=== PATIENT | female | born 1975 | race Caucasian/White ===

== ENCOUNTER 2016-12-19 08:29 | Emergency (ER) | payer BC, OTHER ==
[~2016-12-19] VITALS: Ht 157.5 cm; Wt 126.0 kg
[~2016-12-19 08:29] MED LIST: PRED20TA PO
[2016-12-19 08:37] VITALS: TEMP 36.6; Ht 157.5 cm; Wt 126.0 kg
[2016-12-19] MEDS ORDERED: ONDANSETRON INJ 2 MG/ML 2 ML VIAL IV STA (08:44)
[2016-12-19] MEDS ORDERED: SODIUM CHLORIDE 0.9% 1000ML 1,000 ML IV STA (08:44)
[2016-12-19] MEDS ORDERED: MoRPHine SULFATE 4 MG/ML 1 ML CARP\\VIAL IV STA (08:44)
--- NOTE | 2016-12-19 08:54 | EMERGENCY ROOM VISIT NOTE ---
History First contact with patient: 08:34 Chief Complaint: ABDOMINAL PAIN Stated Complaint: GALLBLADDER PAIN-RT SIDE GOING INTO BACK Nursing Triage Summary: pt here with intermittent abd pains since sunday. pt suspects it is her gallbladder. pt states pain worse after eating. intermittent nausea. History of Present Illness The patient is a 41 year old female who presents to the Emergency Room with complaints of abdominal pain. The patient states that her pain started this morning around 4 AM. She states the pain is in the epigastric region and radiates to the back. She reports associated nausea. She also had an episode 3 days ago which lasted a few hours. She states she took Protonix and apple cider vinegar on Sunday and the pain seemed to resolve after a few hours. The patient did well until this morning when the pain returned. She denies any fevers or chills. She denies any pain in her chest or trouble breathing. She denies any diarrhea, melena, hematochezia. She denies any hematemesis. She denies any urinary symptoms. She has had appendectomy and tubal ligation in the past. Review of Systems A 10 system review of systems was completed with positives and pertinent negatives listed in the HPI. Past Medical/Surgical History Surgical Problems: (1) History of appendectomy (2) History of partial hysterectomy (3) History of tubal ligation (4) Hx of tonsillectomy Family History FHx: gallbladder disease FHx: heart disease Hypertension Social History Smoking Status: Never Smoker Drug Use: none Marital Status: Housing Status: lives with significant other Occupation Status: employed Current/Historical Medications Scheduled PRN Hydrocodone/Acetaminophen 5MG/325MG ([place] 5MG/325MG), 1 TABLET PO Q6 PRN for Pain Allergies Coded Allergies: Sumatriptan (Verified Adverse Reaction, Intermediate, VOMITING, 12/19/16) No Known Allergies (Verified , 10/29/15) Physical Exam Vital Signs Date Time Temp Pulse Resp B/P Pulse Ox O2 Delivery O2 Flow Rate FiO2 12/19/16 09:59 72 18 121/77 96 Room Air 12/19/16 08:37 36.6 95 16 163/117 98 Room Air Physical Exam VITALS: Vitals are noted on the nurse's note and reviewed by myself. Vital signs stable. The patient is afebrile GENERAL: This is a 41-year-old female, in no acute distress, nondiaphoretic, well-developed well-nourished. SKIN: The skin was without rashes, erythema, edema, or bruising. There is no tenting of the skin. Capillary reflex less than 2 seconds. HEAD: Normocephalic atraumatic. EARS: The external ears are normal in appearance EYES: Pupils equal round and reactive to light and accommodation. Conjunctivae without injection, sclerae without icterus. Extraocular movements intact. NOSE: Patent, turbinates without inflammation or discharge. MOUTH: Mucous membranes moist. Tonsils are not enlarged. Pharynx without erythema or exudate. Uvula midline. Airway patent. Tongue does not deviate. NECK: Supple without nuchal rigidity. No lymphadenopathy. No thyromegaly. Cervical spine is nontender. No JVD. HEART: Regular rate and rhythm without murmurs gallops or rubs. LUNGS: Clear to auscultation bilaterally without wheezes, rales or rhonchi. No retractions or accessory muscle use. ABDOMEN: Positive bowel sounds x 4. Soft, moderate epigastric and right upper quadrant tenderness, without masses or organomegaly. Boyd sign positive. MUSCULOSKELETAL: No muscle atrophy, erythema, or edema noted. Full range of motion in all extremities. Normal gait. Strength 5/5 throughout. NEURO: Patient was alert and oriented to person place and time. No focal neurological deficits. Medical Decision & Procedures ER Provider Diagnostic Interpretation: [~ rep ct add3]] ULTRASOUND RIGHT UPPER QUADRANT ABDOMEN CLINICAL HISTORY: Right upper quadrant abdominal pain. COMPARISON STUDY: Abdominal CT dated 07/05/2015. TECHNIQUE: Real-time, grayscale, and color flow sonography of the right upper quadrant of the abdomen was performed. Images are reviewed in the transverse and longitudinal planes. The examination is degraded by large body habitus. FINDINGS: Liver: The liver is enlarged, measuring over 23 cm in length. The liver demonstrates heterogeneously increased echotexture consistent with hepatic steatosis. Note that this degrades acoustic penetration of the liver. There is no intrahepatic biliary ductal dilatation. The main portal vein is patent. Gallbladder: There are calcified gallstones which measure up to 2.5 cm. Small foci of adenomyomatosis are identified. There is no gallbladder wall thickening or pericholecystic fluid. A sonographic Boyd's sign is reportedly absent. The common bile duct measures up to 0.4 cm in diameter. Pancreas: Visualized portions of the pancreatic head and body are normal in appearance. Right kidney: Survey images of the right kidney demonstrate normal size and echotexture. There is no hydronephrosis. Ascites: None. IMPRESSION: 1. Cholelithiasis without sonographic evidence of acute cholecystitis. 2. Hepatomegaly and severe hepatic steatosis. [~ rep ct add3]] CHEST ONE VIEW PORTABLE CLINICAL HISTORY: upper abdominal pain pain COMPARISON STUDY: No previous studies for comparison. FINDINGS: The bones soft tissues and hemidiaphragms are normal. The cardiomediastinal silhouette is normal. The lungs are clear. The pulmonary vasculature is normal. IMPRESSION: Negative chest. Laboratory Results 12/19/16 09:00 Red Blood Count 4.80, Mean Corpuscular Volume 86.9, Mean Corpuscular Hemoglobin 28.1, Mean Corpuscular Hemoglobin Concent 32.4, Mean Platelet Volume 10.9, Neutrophils (%) (Auto) 72.1, Lymphocytes (%) (Auto) 22.3, Monocytes (%) (Auto) 4.2, Eosinophils (%) (Auto) 0.9, Basophils (%) (Auto) 0.2, Neutrophils # (Auto) 7.31, Lymphocytes # (Auto) 2.26, Monocytes # (Auto) 0.43, Eosinophils # (Auto) 0.09, Basophils # (Auto) 0.02 12/19/16 09:00 Test 12/19/16 08:47 12/19/16 09:00 Urine Color YELLOW Urine Appearance CLEAR (CLEAR) Urine pH 8.0 (4.5-7.5) Urine Specific [place] 1.011 (1.000-1.030) Urine Protein NEG (NEG) Urine Glucose (UA) NEG (NEG) Urine Ketones NEG (NEG) Urine Occult Blood NEG (NEG) Urine Nitrite NEG (NEG) Urine Bilirubin NEG (NEG) Urine Urobilinogen NEG (NEG) Urine Leukocyte Esterase NEG (NEG) Urine Test NEG (NEG) White Blood Count 10.14 K/uL (4.8-10.8) Red Blood Count 4.80 M/uL (4.2-5.4) Hemoglobin 13.5 g/dL (12.0-16.0) Hematocrit 41.7 % (37-47) Mean Corpuscular Volume 86.9 fL (80-100) Mean Corpuscular Hemoglobin 28.1 pg (25-34) Mean Corpuscular Hemoglobin Concent 32.4 g/dl (32-36) Platelet Count 329 K/uL (130-400) Mean Platelet Volume 10.9 fL (7.4-10.4) Neutrophils (%) (Auto) 72.1 % Lymphocytes (%) (Auto) 22.3 % Monocytes (%) (Auto) 4.2 % Eosinophils (%) (Auto) 0.9 % Basophils (%) (Auto) 0.2 % Neutrophils # (Auto) 7.31 K/uL (1.4-6.5) Lymphocytes # (Auto) 2.26 K/uL (1.2-3.4) Monocytes # (Auto) 0.43 K/uL (0.11-0.59) Eosinophils # (Auto) 0.09 K/uL (0-0.5) Basophils # (Auto) 0.02 K/uL (0-0.2) RDW Standard Deviation 46.1 fL (36.4-46.3) RDW Coefficient of Variation 14.5 % (11.5-14.5) Immature Granulocyte % (Auto) 0.3 % Immature Granulocyte # (Auto) 0.03 K/uL (0.00-0.02) Anion Gap 11.0 mmol/L (3-11) Est Creatinine Clear Calc Drug Dose 154.2 ml/min Estimated GFR () 130.5 Estimated GFR (Non- 112.6 BUN/Creatinine Ratio 13.8 (10-20) Calcium Level 9.0 mg/dl (8.5-10.1) Total Bilirubin 0.2 mg/dl (0.2-1) Aspartate Amino Transf (AST/SGOT) 12 U/L (15-37) Alanine Aminotransferase (ALT/SGPT) 25 U/L (12-78) Alkaline Phosphatase 104 U/L (45-117) Total Protein 7.1 gm/dl (6.4-8.2) Albumin 3.0 gm/dl (3.4-5.0) Globulin 4.1 gm/dl (2.5-4.0) Albumin/Globulin Ratio 0.7 (0.9-2) Lipase 152 U/L (73-393) Medications Administered Medications (Trade) Dose Ordered Sig/Ponce Route Start Time Stop Time Status Last Admin Dose Admin Sodium Chloride (Nss 1000ml) 1,000 ml @ 999 mls/hr Q1H1M STAT IV 12/19/16 08:44 12/19/16 09:44 DC 12/19/16 09:06 999 MLS/HR Ondansetron HCl (Zofran Inj) 4 mg NOW STAT IV 12/19/16 08:44 12/19/16 08:48 DC 12/19/16 09:06 4 MG Morphine Sulfate (MoRPHine SULFATE INJ) 4 mg NOW STAT IV 12/19/16 08:44 12/19/16 08:48 DC 12/19/16 09:06 4 MG Procedure The patient was monitored on a swiss type screw machine operator. They maintained a normal sinus rhythm without ectopy. ED Course The patient was seen and examined. Previous visits were reviewed. The patient does not have a fever or leukocytosis. She does not have any significant electrolyte abnormality. Lipase is not elevated. Urinalysis is negative. Urine test was negative. Ultrasound of the gallbladder reveals cholelithiasis and hepatic steatosis without evidence for acute cholecystitis Chest x-ray does not reveal any acute abnormality The patient was hydrated with normal saline She was given 4 mg IV morphine and 4 mg IV Zofran with good improvement in her pain The patient was advised to follow-up with her family doctor for possible outpatient HIDA scan and referral to general surgery as indicated The patient has a history of reflux and only takes her Protonix intermittently. I advised her to take the Protonix daily for the next 14 days She will be given a small prescription for Fitzhugh She should return with any worsening symptoms The case was discussed with Dr. Romero who agrees with the assessment and treatment plan Medical Decision DIFFERENTIAL DIAGNOSIS: Hepatitis, cholecystitis, cholangitis, biliary colic, pancreatitis, pneumonia, subdiaphragmatic abscess, appendicitis, inguinal hernia , nephrolithiasis, inflammatory bowel disease, mesenteric adenitis, peptic ulcer disease, GERD, gastritis, pancreatitis, myocardial infarction, pericarditis, ruptured aortic aneurysm, appendicitis, gastroenteritis, bowel obstruction, splenic infarct, diverticulitis, mesenteric ischemia, metabolic, peritonitis, among others. [place] Drug Monitoring [place] Drug Monitoring Findings: I was unable to log into the PDMP Impression Primary Impression: Cholelithiasis Additional Impression: Hepatic steatosis Departure Information Dispostion Home / Self-Care Condition GOOD Prescriptions Hydrocodone/Acetaminophen 5MG/325MG (Fitzhugh 5MG/325MG) Tab 1 TABLET PO Q6 Y for Pain, #12 TAB For Initial Treatment Prov: Jasmina Quinones PA-C 12/19/16 Referrals Jeana Green M.D. (PCP) Patient Instructions My [facility] Additional Instructions Take your protonix daily for 14 days Contact your family doctor for a follow up appointment and further evaluation of the gallbladder Return with worsening symptoms Problem Qualifiers Primary Impression: Cholelithiasis
[2016-12-19 09:16] LABS: MANUAL MICROSCOPIC REQUIRED? NO; REVIEW REQ? NO; URINE APPEARANCE CLEAR (CLEAR); URINE BILIRUBIN NEG (NEG); URINE COLOR YELLOW; URINE NITRITE NEG (NEG); URINE SPECIFIC GRAVITY 1.011 (1.000-1.030); UROBILINOGEN NEG (NEG); ZZUR CULT IF INDIC CLEAN CATCH NO
--- NOTE | 2016-12-19 09:18 | DIAGNOSTIC IMAGING REPORT ---
CHEST ONE VIEW PORTABLE CLINICAL HISTORY: upper abdominal pain pain COMPARISON STUDY: No previous studies for comparison. FINDINGS: The bones soft tissues and hemidiaphragms are normal. The cardiomediastinal silhouette is normal. The lungs are clear. The pulmonary vasculature is normal. IMPRESSION: Negative chest. Electronically signed by: Leo Walsh M.D. 12/19/2016 9:17 AM Dictated Date/Time: 12/19/2016 9:17 AM
--- NOTE | 2016-12-19 09:46 | DIAGNOSTIC IMAGING REPORT ---
ULTRASOUND RIGHT UPPER QUADRANT ABDOMEN CLINICAL HISTORY: Right upper quadrant abdominal pain. COMPARISON STUDY: Abdominal CT dated 07/05/2015. TECHNIQUE: Real-time, grayscale, and color flow sonography of the right upper quadrant of the abdomen was performed. Images are reviewed in the transverse and longitudinal planes. The examination is degraded by large body habitus. FINDINGS: Liver: The liver is enlarged, measuring over 23 cm in length. The liver demonstrates heterogeneously increased echotexture consistent with hepatic steatosis. Note that this degrades acoustic penetration of the liver. There is no intrahepatic biliary ductal dilatation. The main portal vein is patent. Gallbladder: There are calcified gallstones which measure up to 2.5 cm. Small foci of adenomyomatosis are identified. There is no gallbladder wall thickening or pericholecystic fluid. A sonographic Boyd's sign is reportedly absent. The common bile duct measures up to 0.4 cm in diameter. Pancreas: Visualized portions of the pancreatic head and body are normal in appearance. Right kidney: Survey images of the right kidney demonstrate normal size and echotexture. There is no hydronephrosis. Ascites: None. IMPRESSION: 1. Cholelithiasis without sonographic evidence of acute cholecystitis. 2. Hepatomegaly and severe hepatic steatosis. Electronically signed by: Archie Cain M.D. 12/19/2016 9:44 AM Dictated Date/Time: 12/19/2016 9:42 AM
[2016-12-19 09:48] LABS: BASO % 0.2 %; BASO ABS # 0.02 K/uL (0-0.2); COMPLETE YES; EOS % 0.9 %; HEMATOCRIT 41.7 % (37-47); IG% 0.3 %; LYMPH % 22.3 %; LYMPH ABS # 2.26 K/uL (1.2-3.4); MEAN CELL VOLUME 86.9 fL (80-100); MEAN CORPUSCULAR HEMOGLOBIN 28.1 pg (25-34); MEAN CORPUSCULAR HGB CONC 32.4 g/dl (32-36); MEAN PLATELET VOLUME 10.9 fL (7.4-10.4); MONO % 4.2 %; NEUT % 72.1 %; PLATELET COUNT 329 K/uL (130-400); WHITE BLOOD COUNT 10.14 K/uL (4.8-10.8)
[2016-12-19 09:56] LABS: BUN/CREATININE RATIO 13.8 (10-20); CREATININE 0.61 mg/dl (0.60-1.20); POTASSIUM 3.9 mmol/L (3.5-5.1)
[2016-12-19 09:59] LABS: ALB/GLOB RATIO 0.7 (0.9-2)
[2016-12-19] MEDS ORDERED: HYDR-5688 PO (10:28)
[2016-12-19 10:41] VITALS: BP 126/79; PULSE 75; O2SAT 99
[2017-02-08] MEDS ORDERED: POLY335019 PO (12:52)
[2017-02-08] MEDS ORDERED: TRAM-10 PO (12:52)
[2017-02-08] MEDS ORDERED: DICL1GEL12 TOP (12:52)
[2017-02-08] MEDS ORDERED: PANT40TA PO (12:52)
[2017-02-08] MEDS ORDERED: LORA-741 PO (12:52)
[2017-02-08] MEDS ORDERED: HYDR-5688 PO (12:52)
[2017-02-08] MEDS ORDERED: RIZA10TA18 PO (12:52)
[2017-02-08] MEDS ORDERED: FURO-85 PO (12:53)
== END 2016-12-19 10:42 | disposition home or self-care (01) ==
LOC: C.EDB 08:30
DX: K80.20 Calculus of gallbladder without cholecystitis without obstruction (principal); K76.0 Fatty (change of) liver, not elsewhere classified; Z90.89 Acquired absence of other organs; Z90.711 Acquired absence of uterus with remaining cervical stump; Z98.51 Tubal ligation status; Z82.49 Family history of ischemic heart disease and other diseases of the circulatory system

== ENCOUNTER 2017-02-12 10:00 | Day surgery (SDC) | payer OTHER ==
[2017-02-08 12:53] VITALS: BMI 49.0
--- NOTE | 2017-02-08 13:16 | PAT Medication Instructions ---
Service Date Feb 08, 2017. Current Home Medication List Diclofenac Sodium (Topical) (Voltaren 1% Top Gel), 1 DOSE TOP DAILY PRN for Pain Furosemide (Lasix), 20 MG PO DAILY PRN for FLUID RETENTION Hydrocodone/Acetaminophen 5MG/325MG ([place] 5MG/325MG), 1 TABLET PO QID PRN for Pain Lorazepam (Ativan), 0.5 MG PO TID PRN for Anxiety Pantoprazole (Protonix), 40 MG PO BID Polyethylene Glycol 3350 (Miralax), 17 GM PO DAILY PRN for Constipation Rizatriptan Benzoate (Maxalt), 10 MG PO UD PRN for Migraine Tramadol (Ultram), 50 MG PO Q8H PRN for Pain Medication Instructions For Your Scheduled Surgery - Hold the following medications 24 hours prior to surgery: Diclofenac Sodium (Topical) (Voltaren 1% Top Gel), 1 DOSE TOP DAILY PRN for Pain - Hold the following medications the morning of surgery: Polyethylene Glycol 3350 (Miralax), 17 GM PO DAILY PRN for Constipation Furosemide (Lasix), 20 MG PO DAILY PRN for FLUID RETENTION - Take the following medications the morning of surgery with a sip of water: Rizatriptan Benzoate (Maxalt), 10 MG PO UD PRN for Migraine (if needed) Pantoprazole (Protonix), 40 MG PO BID Lorazepam (Ativan), 0.5 MG PO TID PRN for Anxiety (if needed) Hydrocodone/Acetaminophen 5MG/325MG ([place] 5MG/325MG), 1 TABLET PO QID PRN for Pain (okay to take up to 4 hours prior to surgery if needed) Tramadol (Ultram), 50 MG PO Q8H PRN for Pain (okay to take up to 4 hours prior to surgery if needed) - Take the following medications as scheduled the night before surgery: Rizatriptan Benzoate (Maxalt), 10 MG PO UD PRN for Migraine Polyethylene Glycol 3350 (Miralax), 17 GM PO DAILY PRN for Constipation (if needed) Pantoprazole (Protonix), 40 MG PO BID Lorazepam (Ativan), 0.5 MG PO TID PRN for Anxiety (if needed) Hydrocodone/Acetaminophen 5MG/325MG ([place] 5MG/325MG), 1 TABLET PO QID PRN for Pain (if needed) Tramadol (Ultram), 50 MG PO Q8H PRN for Pain (if needed) If you have any questions please call us at [phone] or [phone] or [phone]
[~2017-02-12] VITALS: Ht 157.5 cm; Wt 122.6 kg
[~2017-02-12 10:00] MED LIST changes: +ACETAMINOPHEN 1000 MG/100 ML IV IV ONE; +CEFAZOLIN 3000 MG/65 ML D5W IV SCH; +DICL1GEL12 TOP; +FURO-85 PO; +HYDR-5688 PO; +LACTATED RINGER'S 1000ML 1,000 ML IV SCH; +LORA-741 PO; +PANT40TA PO; +POLY335019 PO; -PRED20TA PO; +RIZA10TA18 PO; +SODIUM CHLORIDE 0.9% 1000ML 1,000 ML IV SCH; +TRAM-10 PO
[2017-02-12 10:41] VITALS: BP 133/72; PULSE 75; TEMP 37; O2SAT 97; Ht 157.5 cm; Wt 122.6 kg
[2017-02-12] MEDS ORDERED: PHENYLEPHRINE 100MCG/ML 5ML SYR IV PRN (10:45)
[2017-02-12] MEDS ORDERED: LABETALOL HCL IV 5 MG/ML 20ML IV PRN (10:45)
[2017-02-12] MEDS ORDERED: EpHEDrine SULFATE INJ 50 MG/ML AMP IV PRN (10:45)
[2017-02-12] MEDS ORDERED: NALOXONE HCL 0.4 MG/1 ML VIAL/CARP IV PRN (10:45)
[2017-02-12] MEDS ORDERED: ONDANSETRON INJ 2 MG/ML 2 ML VIAL IV PRN ×2 (10:45→14:15)
[2017-02-12] MEDS ORDERED: ATROPINE SULFATE 0.1 MG/ML 5ML SYR IV PRN (10:45)
[2017-02-12] MEDS ORDERED: FLUMAZENIL 0.1 MG/1 ML 10 ML VIAL IV PRN (10:45)
[2017-02-12] MEDS ORDERED: MEPERIDINE HCL 25 MG/ML CARP IV PRN (10:45)
[2017-02-12] MEDS ORDERED: FENTANYL CITRATE INJ 50 MCG/1 ML 2 ML VIAL ONE ×2 (11:28→12:55)
[2017-02-12] MEDS ORDERED: PROPOFOL IV EMULSION 10 MG/ML 20 ML VIAL IV ONE (11:28)
[2017-02-12] MEDS ORDERED: GLYCOPYRROLATE INJ 0.2 MG/ML VIAL ONE (11:28)
[2017-02-12] MEDS ORDERED: ROCURONIUM BROMIDE 10 MG/ML 5 ML VIAL ONE (11:28)
[2017-02-12] MEDS ORDERED: NEOSTIGMINE METHYLSULFATE 5 MG/5 ML SYR ONE (11:28)
[2017-02-12] MEDS ORDERED: MIDAZOLAM HCL 1 MG/ML 2ML VIAL ONE (11:28)
[2017-02-12] MEDS ORDERED: DEXAMETHASONE SOD INJ 4 MG/ML VIAL ONE (11:28)
[2017-02-12] MEDS ORDERED: ONDANSETRON INJ 2 MG/ML 2 ML VIAL ONE (11:28)
[2017-02-12] MEDS ORDERED: LIDOCAINE HCL 2% 2 ML VIAL (20MG/ML) ONE (11:28)
--- NOTE | 2017-02-12 12:00 | History & Physical Bridge Note ---
H&P Re-Evaluation Bridge Note: I have examined the patient, reviewed the History & Physical and in the interval since the performance of the History & Physical I have noted the following changes of clinical significance: No changes noted
[2017-02-12] MEDS ORDERED: BUPIVACAINE 0.5 % 5 MG/1 ML MPF 30ML VIAL ONE (12:20)
[2017-02-12] MEDS ORDERED: BACITRACIN OINT 15 GM TUBE ONE (12:20)
[2017-02-12] MEDS ORDERED: LIDOCAINE HCL 1% 20 ML VIAL ONE (12:20)
[2017-02-12] MEDS ORDERED: METOPROLOL TARTRATE 1 MG/ML VIAL IV STA (12:30)
[2017-02-12] MEDS ORDERED: SUCCINYLCHOLINE CHLORIDE 20 MG/ML 10 ML VIAL IV ONE (13:09)
--- NOTE | 2017-02-12 13:49 | [facility] Post Operative Brief Note ---
Immediate Operative Summary Operative Date Feb 12, 2017. Pre-Operative Diagnosis Right upper quadrant pain, chronic cholecystitis, cholelithiasis Post-Operative Diagnosis same Procedure(s) Performed laparoscopic cholescytectomy Surgeon Carrasco Senior Safety Support Manager Surgeon(s) Emily Jauregui PA-C Estimated Blood Loss 10CC Findings chronic cholecystitis, cholelithiasis Fluids (cc crystalloids) 800ml Specimens A: Gallbladder Drains none Anesthesia general Complication(s) None Disposition Recovery Room / PACU
[2017-02-12] MEDS ORDERED: HYDR-5688 PO (14:01)
--- NOTE | 2017-02-12 14:05 | Discharge Instructions ---
Discharge Instructions Date of Service Feb 12, 2017. Admission Reason for Admission: Gallstones Discharge Discharge Diagnosis / Problem: s/p laparoscopic cholecystectomy Discharge Goals Goal(s): Decrease discomfort Activity Recommendations Activity Limitations: as noted below No heavy lifting over 20 pounds for 2 weeks No strenuous activity until cleared by surgeon walking and light activity is encouraged to prevent blood clots No submerging incisions underwater for 2 weeks (no swimming, bathing, or hot tubs) No driving while taking narcotic pain medication . Instructions / Follow-Up Instructions / Follow-Up You may shower in 4 days and then remove outer dressings. Sponge bath and wash hair in meantime. Try to keep dressings dry. Keep steri strips on incisions for 10 days, they may fall off before that is okay Follow-up with Dr. Carrasco in 1 week, please call office at [phone] if you do not already have an appointment. Current Hospital Diet Patient's current hospital diet: Discharge Diet Recommended Diet: Regular Diet Procedures Procedures Performed: laparoscopic cholescytectomy Pending Studies Studies pending at discharge: no Medical Emergencies . Who to Call and When: Medical Emergencies: If at any time you feel your situation is an emergency, please call 911 immediately. . Non-Emergent Contact Non-Emergency issues call your: Primary Care Provider, Surgeon Call Non-Emergent contact if: you have a fever, temperature is above 101.5, your pain is not controlled, your pain is worsening, your pain is unusual for you, wound has increased drainage, wound has increased redness, wound has increased pain . "Provider Documentation" section prepared by Emily Jauregui. . VTE Core Measure Inpt VTE Proph given/why not?: SCD's [place] Drug Monitoring [place] Search Results: patient reviewed within database, no issues identified
[2017-02-12] MEDS: FENTANYL CITRATE INJ 50 MCG/1 ML 2 ML VIAL IV PRN ×4 (14:10→14:25)
[2017-02-12] MEDS ORDERED: MoRPHine SULFATE 4 MG/ML 1 ML CARP\\VIAL IV PRN (14:15)
[2017-02-12] MEDS ORDERED: MoRPHine SULFATE 2 MG/ML CARP IV PRN ×2 (14:15)
[2017-02-12] MEDS ORDERED: OXYCODONE/ACETAMINOPHEN 5-325 TAB PO PRN (14:15)
--- NOTE | 2017-02-12 14:20 | [facility] Operative Report ---
Operative Report Operative Date Feb 12, 2017. Pre-Operative Diagnosis Right upper quadrant pain, chronic cholecystitis, cholelithiasis Post-Operative Diagnosis same Procedure(s) Performed laparoscopic cholescytectomy Surgeon Danilo Coke Still Cleaner Surgeon(s) Emily Jauregui PA-C Estimated Blood Loss 10CC Findings chronic cholecystitis, cholelithiasis Fluids 800ml Specimens A: Gallbladder Drains none Anesthesia general Complication(s) None Disposition Recovery Room / PACU Indications Patient is 41 years old female who presented right local pain, patient had the ultrasound shows patient had gallstones, patient requires to do that laparoscopic cholecystectomy , possible open, or cholangiogram, I talked patient about benefits, risks and alternatives of the procedure, I indicated the risks may including but not limit such as infection, bleeding, injury to common bile duct or bowel, may need ERCP, incisional hernia, even , patient understood, she signed consent, I answered all questions. Description of Procedure We bring patient to the OR, place the patient on superior position on the OR table, patient will receive a SCD on bilateral leg prevent DVT, patient received 2 gm Ancef IV for prophylactic antibiotic, patient received general anesthesia without difficulty, patient's abdomen was appropriately prepped and dripped in normal fashion, after timeout, a small incisions was made just above umbilical area, into abdominal cavity without difficulty, put Audelia trocar in, connect to CO2 to create pneumoperitoneum. A flaw rate at 6 L/min for pressure not more than 14 mm Hg, a 10 millimeter camera insertion to look around the abdomen which showed normal finding on the stomach, small bowel, large bowel, and liver, however patient had some omental cover the gallbladder , the gallbladder showed chronic cholecystitis, then I put another 3 5 millimeter trocar right upper abdomen, use of grasper base of the gallbladder to pull to diaphragm, another grasper to hold parch of gallbladder to explory triangle calot, the cyst dust was undetermined and mobilize, put 2 5mm metal clip on proximal cyst dust, one on the distal cyst duct, then divide the cyst duct, to cease the cyst artery was identified and mobilized, 2 5 mm metal clip was placed on proximal artery, one on distal artery, the artery was divided , take down gallbladder from liver bed. recheck, no active bleeding, no biliary leak, removed the gallbladder by using catch bag, recheck abdoment, no active bleeding, no biliary leak, remove all trocars under direct vision, no active bleeding, close all incisions in normal fashion.patient tolearted the procedure well, all instrument count correct time 2 at end of case, patient is stable condition. I attest to the content of the Intraoperative Record and any orders documented therein. Any exceptions are noted below.
[2017-02-12] MEDS: HYDROmorphone INJ 2 MG/ML SYR/VIAL IV PRN ×4 (14:30→14:45)
--- NOTE | 2017-02-12 15:04 | Anesthesiology Progress Note ---
Anesthesia Post Op Note Date & Time Feb 12, 2017 at 15:04 Vital Signs Pain Intensity: 4 Vital Signs Past 12 Hours Date Time Temp Pulse Resp B/P (MAP) Pulse Ox O2 Delivery O2 Flow Rate FiO2 02/12/17 14:55 36.7 89 20 117/61 93 Room Air 02/12/17 14:45 69 16 124/59 92 Room Air 02/12/17 14:35 64 16 116/56 97 Room Air 02/12/17 14:25 70 17 129/70 98 Room Air 02/12/17 14:15 75 19 130/76 98 Mask 10 02/12/17 14:05 83 16 148/80 100 Mask 10 02/12/17 13:58 36.0 104 18 145/97 100 Mask 10 02/12/17 10:41 37 75 18 133/72 (92) 97 Room Air Notes Mental Status: alert / awake / arousable, participated in evaluation Pt Amnestic to Procedure: Yes Nausea / Vomiting: adequately controlled Pain: adequately controlled Airway Patency, RR, SpO2: stable & adequate BP & HR: stable & adequate Hydration State: stable & adequate Anesthetic Complications: no major complications apparent
[2017-02-12 15:10] VITALS: BP 95/57; PULSE 71; TEMP 36.3; O2SAT 92
[2017-02-12 15:40] VITALS: BP 123/54; PULSE 76; O2SAT 94
[2017-02-12 16:10] VITALS: BP 137/76; PULSE 74; TEMP 36.7; O2SAT 94
[2017-02-13] MEDS ORDERED: CEFAZOLIN IV 2,000 MG/60 ML D5W IV ONE (06:00)
== END 2017-02-12 16:35 | disposition home or self-care (01) ==
LOC: C.ACU 10:00
PROVIDERS: ATTEND Surgery
DX: K80.10 Calculus of gallbladder with chronic cholecystitis without obstruction (principal); K21.9 Gastro-esophageal reflux disease without esophagitis; Z90.710 Acquired absence of both cervix and uterus; Z83.3 Family history of diabetes mellitus; Z82.49 Family history of ischemic heart disease and other diseases of the circulatory system; Z82.0 Family history of epilepsy and other diseases of the nervous system

== ENCOUNTER 2017-02-16 04:42 | Emergency (ER) | payer OTHER ==
[~2017-02-16] VITALS: Ht 157.5 cm; Wt 122.5 kg
[~2017-02-16 04:42] MED LIST changes: -ACETAMINOPHEN 1000 MG/100 ML IV IV ONE; -CEFAZOLIN 3000 MG/65 ML D5W IV SCH; -LACTATED RINGER'S 1000ML 1,000 ML IV SCH; -SODIUM CHLORIDE 0.9% 1000ML 1,000 ML IV SCH
[2017-02-16 04:49] VITALS: TEMP 36.8; Ht 157.5 cm; Wt 122.5 kg
[2017-02-16] MEDS ORDERED: KETOROLAC TROMETHAMINE 60 MG/2 ML VIAL IM STA (05:10)
[2017-02-16] MEDS ORDERED: OXYCODONE/ACETAMINOPHEN 5-325 TAB PO ONE (05:15)
--- NOTE | 2017-02-16 05:35 | EMERGENCY ROOM VISIT NOTE ---
History Report prepared by Manuel: Ricardo Faulkner Under the Supervision of: Dr. Ana Pham D.O. First contact with patient: 04:53 Chief Complaint: KNEEPAIN Stated Complaint: RIGHT KNEE PAIN History of Present Illness The patient is a 41 year old female who presents to the Emergency Room with complaints of worsening right knee pain that began two days ago. She rates her pain an 8/10 in severity. When she awoke at this time, she heard and felt a "pop " when she stretched her leg out. Since then, her pain has worsened, and now she is unable to bear weight. She had a recent cholecystectomy. She has a previous ACL injury to her left knee. She never injured her right knee before. She denies any other abnormal symptoms. Source of History: patient Onset: two days ago Position: knee (right) Symptom Intensity: 8/10 Quality: sharp Timing: worsening Modifying Factors (Worsening): movement Associated Symptoms: No SOB Note: She denies any other abnormal symptoms. Review of Systems Denies any shortness of breath and redness or swelling of the knee or leg. Past Medical & Surgical Surgical Problems: (1) History of appendectomy (2) History of partial hysterectomy (3) History of tubal ligation (4) Hx of tonsillectomy Family History FHx: gallbladder disease FHx: heart disease Hypertension Social History Smoking Status: Never Smoker Drug Use: none Marital Status: Housing Status: lives with significant other Occupation Status: employed Current/Historical Medications Scheduled Pantoprazole (Protonix), 40 MG PO DAILY Scheduled PRN Rizatriptan Benzoate (Maxalt), 10 MG PO UD PRN for Migraine Tramadol (Ultram), 50 MG PO Q8H PRN for Pain Allergies Coded Allergies: Sumatriptan (Verified Adverse Reaction, Intermediate, VOMITING, 02/16/17) Gabapentin (Verified Adverse Reaction, Mild, ANXIETY, 02/16/17) Physical Exam Vital Signs Date Time Temp Pulse Resp B/P (MAP) Pulse Ox O2 Delivery O2 Flow Rate FiO2 02/16/17 06:39 95 18 135/95 97 02/16/17 04:49 36.8 98 20 127/91 95 Room Air Physical Exam Right Lower Extremity: Pain with palpation over the medical aspect of the knee. No obvious skin findings. Negative anterior and posterior drawer testing. No pain in varus or valgus positioning. Negative Deyanira test. Medical Decision & Procedures ER Provider Diagnostic Interpretation: Radiology results as stated below per my review and the radiologist's interpretation: RIGHT KNEE XRAY: No significant joint effusion. No obvious fracture. Per me. Medications Administered Medications (Trade) Dose Ordered Sig/Ponce Route Start Time Stop Time Status Last Admin Dose Admin Ketorolac Tromethamine (Toradol Inj) 60 mg NOW STAT IM 02/16/17 05:10 02/16/17 05:11 DC 02/16/17 05:27 60 MG Oxycodone/ Acetaminophen (Percocet 5-325mg Tab) 2 tab NOW ONCE PO 02/16/17 05:15 02/16/17 05:16 DC 02/16/17 05:21 2 TAB Procedure Toradol Inj 60 mg IM Percocet 5-325 mg Tab 2 tab PO ED Course 0453: Past medical records reviewed. The patient was evaluated in room B2. A complete history and physical exam was performed. 0510: Ordered Toradol Inj 60 mg IM 0515: Ordered Percocet 5-325 mg Tab 2 tab PO. The patient went for plain films of the right knee which were unremarkable. 0608: The patient got some relief with the pain medications. She will be going into a knee immobilizer and will get crutches. 0617: Upon reevaluation, the patient is resting. I discussed findings and results with her. She verbalized agreement of the treatment plan. She was discharged home. Medical Decision The patient is a 41 year old female who presents to the ED with right knee pain. Differential diagnosis includes right knee sprain, DVT, meniscus injury, and ligamentous injury. I attest that I have personally reviewed the patient's current medication list. Patient was found to have normal blood pressure on screening and does not require follow-up. The patient was placed into a knee immobilizer and given crutches. She has had previous procedures done by Dr. Colin. She will follow-up with him in his office. She can use Tylenol or Motrin for pain. Impression Primary Impression: Right knee pain Scribe Attestation The scribe's documentation has been prepared under my direction and personally reviewed by me in its entirety. I confirm that the note above accurately reflects all work, treatment, procedures, and medical decision making performed by me. Departure Information Dispostion Home / Self-Care Referrals Jeana Green M.D. (PCP) Forms HOME CARE DOCUMENTATION FORM, IMPORTANT VISIT INFORMATION Patient Instructions My [employer] Additional Instructions Rest with the right knee elevated and ice it. Wear knee immobilizer and use crutches. Contact Dr. Colin today for an appointment Problem Qualifiers Primary Impression: Right knee pain Chronicity: acute Qualified Codes: M25.561 - Pain in right knee
[2017-02-16 06:39] VITALS: BP 135/95; PULSE 95; O2SAT 97
--- NOTE | 2017-02-16 07:01 | DIAGNOSTIC IMAGING REPORT ---
RIGHT KNEE 1 OR 2 VIEWS ROUTINE CLINICAL HISTORY: Right knee pain COMPARISON: None. DISCUSSION: There is chondrocalcinosis. No acute fractures or dislocations are visualized. IMPRESSION: Chondrocalcinosis. No acute fractures identified. Electronically signed by: Ben Garnett M.D. 02/16/2017 7:00 AM Dictated Date/Time: 02/16/2017 6:59 AM
== END 2017-02-16 06:40 | disposition home or self-care (01) ==
LOC: C.EDB 04:43
DX: M25.561 Pain in right knee (principal); Z82.49 Family history of ischemic heart disease and other diseases of the circulatory system

== ENCOUNTER → 2017-03-18 | Outpatient (CLI) | payer OTHER ==
[~2017-03-18] MED LIST changes: -DICL1GEL12 TOP; -FURO-85 PO; -HYDR-5688 PO; -LORA-741 PO; -POLY335019 PO
--- NOTE | 2017-03-19 08:57 | PAP/PSG TECHNICIAN REPORT ---
[facility] Crm Functional Analyst Polysomnogram Report Study name: None Report date: 03/19/2017 Study date: 03/18/2017 Referring Physician: Roz WALLS M.D. Name: HEBER LEWIS Interpreting Physician: Venessa Walls M.D. Date of : 1975 Crm Functional Analyst: Yesi Steinberg RPSGT. Sex: Female Age: 41 Study Type: PSG Weight: 270 lbs 16 in Height: 41 years, Height 5' 4.5" Neck Circum: BMI: 45.62 Medications: VOLTAREN 1% GEL, TRAMADOL 50 MG, MIRALAX 255 GM, MAXALT 10 MG, PANTOPRAZOLE 40 MG, LORAZEPAM 0.5 MG, FUROSEMIDE 20 MG, VICODIN 5-500 MG, NAPROXEN 500 MG Patient History 41 yr-old female here for a baseline/split study. She has a history of loud snoring, witnessed apneas, and daytime sleepiness. Her [place] scale is 8. The test was started on room air. ETCO2 testing was not utilized during this study. Room 3 Parameters Monitored NPSG: E1-M2, E2-M1, Fp1-M2, Fp2-M1, F3-M2, F4-M2, F4-M1, C3-M2, C4-M2, C4-M1, O1-M2, O2-M2, O2-M1, T3-M2, T4-M1, P3-M2, P4-M1, CHIN1, CHIN2, HR, EKG, Legs, PFLOW, SNOR, FLOW, CFLOW, Tidal Volume, THOR, ABDO, SpO2, PLTH, CPRESS, ETCO2 Wave, ETCO2, pH Sleep Architecture Sleep Stages Time at Lights Off 10:02:22 PM STAGES Time (min.) TST (%) Time at Lights On 5:39:52 AM Wake 26.5 -- Total Recording Time (TRT) 457.50 min. N1 24.5 6 Total Sleep Period (TSP) 439.5 min. N2 275.0 64 Total Sleep Time (TST) 431.0min. N3 36.0 8 Awake Time 26.5 min. REM 95.5 22 Wake after Sleep Onset 10.0 min. Sleep Efficiency (SE) 94 % Sleep Onset Latency (CLEMENTINA) 16.5 min. Number of Stage 1 Shifts None Awakenings 12 Stage Changes 100 Number of REM periods 4 REM 95.5 22 REM Latency 66.5 min. NREM 335.5 78 Body Position Analysis Supine Right Left Side Prone Vertical Total Sleep Time (min.) 35.9 253.7 157.6 411.36 0.0 0.0 Total Sleep Time (%) 5% 59% 37% 95 0% N/A% Total Sleep Time REM (min.) 0.0 79.5 16.0 None 0.0 0.0 Total Sleep Time NREM (min.) 19.6 174.2 141.6 None 0.0 0.0 Intermittent Wake (min.) 16.2 6.6 3.7 None 0.0 0.0 Total Sleep Period (%) 5% None None None None None Arousals Myoclonus (PLM) * Events Count Index Events Count Index Spontaneous 23 3 Events Awake (PLMW) 18 40.8 Respiratory 18 2.6 Events Asleep w/ Arousal (PLMA) 15 2.1 PLM 15 2 Events Asleep w/o Arousal (PLMS) 64 8.9 Snoring 6 1 Total Asleep 79 11.0 Total 61 8 Total 97 13 Respiratory Analysis * CA OA MA CH H RERA Total Count 0 0 0 0 36 6 36 Index 0.0 0.0 0.0 0 5.0 1 5.8 Mean Duration 0.0 0.0 0.0 0.00 16.3 19.0 16.7 Longest Duration 0.0 0.0 0.0 0.00 0.0 22.1 29.4 Respiratory Event Summary Total Supine ~Supine Right Left Prone REM NREM Apneas Count 0 0 0 0 0 N/A 0 0 Index 0.0 0 0 0.0 0.0 N/A 0 0 Hypopneas (4% Desat) Count 36 24 12 6 6 N/A 10 26 Index 5.0 73.3 2 1.4 2.3 N/A 6.3 4.6 Apneas & All Hypopneas Count 36 24 12 6 6 N/A 10 26 Index 5.0 73 2 1 2 N/A 6.3 4.6 Respiratory Events (Heat Treater Apprentice+All Hyp+RERA) Count 36 27 15 8 7 N/A 10 26 Index 5.8 82 2 1.9 2.7 N/A 6.3 5.7 Respiratory Related Arousal Count 18 27 3 2 1 N/A 0 19 Index 2.6 49 0 0 0 N/A 0 3 Snoring Analysis Supine Right Left Prone REM NREM Total Snore duration 50.0 min Snores count 98 1,003 991 N/A 334 1,758 2,092 Snore mean duration 1.4 Sec Snores index 299 237 377 N/A 209.8 314.4 291.2 TST with snoring (%) 11.6% Desaturation Event Summary: Minimum %SpO2 Event Count Mean/Min/Max Duration(sec.) Desaturation Index % Time In Bed > 90 51 22.6 / 6.3 / 54.8 6.7 99.5 86 - 90 1 13.0 / 13.0 / 13.0 28.9 0.5 81 - 85 0 N/A 0.0 0.0 76 - 80 0 N/A 0.0 0.0 71 - 75 0 N/A 0.0 0.0 66 - 70 0 N/A 0.0 0.0 61 - 65 0 N/A 0.0 0.0 56 - 60 0 N/A 0.0 0.0 51 - 55 0 N/A 0.0 0.0 < 50 0 N/A 0.0 0.0 Total REM NREM Awake <50% 0.0 min. 0.0 min. 0.0 min. 0.0 min. 51 - 60% 0.0 min. 0.0 min. 0.0 min. 0.0 min. 61 - 70% 0.0 min. 0.0 min. 0.0 min. 0.0 min. 71 - 80% 0.0 min. 0.0 min. 0.0 min. 0.0 min. 81 - 90% 2.1 min. 1.2 min. 0.9 min. 0.0 min. 91 - 100% 454.5 min. 94.3 min. 334.6 min. 25.6 min. Average 94 94 94 95 Minimum SpO2 85 85 90 92 Desaturation Event Index 6.7 8.8 5.9 9.1 # Desat. Events below 89% 2 2 N/A N/A Time(%) with Saturation below 89% 0.1 0.1 0.0 0.0 Time(min.) with Saturation below 89% 0.4 0.4 0.0 0.0 Time (mins) REM (mins) NREM (mins) % of TST SpO2 Below 90% 9 5 N4 0.1 SpO2 Below 88% 1 0 0 0 Heart Rate Analysis Min (bpm) Max (bpm) Average (bpm) Awake 65 127 84 NREM 62 105 75 REM 71 99 81 Overall 62 105 76 Supplemental O2 Values Minimum O2 level: None Value Start Time End Time Crm Functional Analyst Comments Ms. Lewis slept in the right, left, and supine positions. No cardiac arrhythmias or PLMs noted. No bruxism noted. Snoring was noted and scored as a 2 on a scale of 1 through 5. (0=no snoring, 5=snoring loud enough to be heard through a closed door or down the pillai way). She did not meet specific Split-Night criteria during the diagnostic portion of this study. She did not wake up to use the restroom during the night. Ms. Lewis stated that she slept about the same as usual. The final report will be interpreted and signed by a sleep physician. The completed physician report will then be placed in the patient medical record. Therapy (cm H2O) 0 TIB (min.) 457.5 TST (min.) 431.0 Sleep Onset (min.) 16.5 REM Onset From Sleep (min.) 66.5 Sleep Efficiency % 94 Wakefulness (%) 6 Wakefulness (min.) 26.5 NREM 1 (%) 6 NREM 1 (min.) 24.5 NREM 2 (%) 64 NREM 2 (min.) 275.0 NREM 3 (%) 8 NREM 3 (min.) 36.0 REM (%) 22 REM (min.) 95.5 # Arousals 61 Arousal Index 8 # Snore 2,092 Snore Index 291.2 AHI 5.0 AHI Supine 73 AHI Non-Supine 2 NREM AHI 4.6 REM AHI 6.3 RDI 5.8 # Obstructive Apnea 0 # Central Apnea 0 # Mixed Apnea 0 # Hypopneas 36 RERAs 6 Total Respiratory Events 42 Time Below SpO2 89% (min.) 0.4 Mean NREM SpO2 (%) 94 Mean REM SpO2 (%) 94 Mean Sleep SpO2 (%) 94 Min NREM SpO2 (%) 90 Min REM SpO2 (%) 85 Position Supine (min.) 35.9 Position Non-supine (min.) 411.4 LM Index Sleep 11.0 LM Index NREM 11.6 LM Index REM 8.8 Mean Heart Rate (bpm) 76 Min Heart Rate (bpm) 62
--- NOTE | 2017-03-26 15:02 | POLYSOMNOGRAPH REPORT ---
REFERRING PERSON: Dr. Karla Walls. OFFSET PRINTING OPERATOR: Yesi Steinberg. Ms. Sol is a 41-year-old female sent for baseline split night sleep study. She has a history of loud snoring, witnessed apneas, and daytime sleepiness. Her [place] sleepiness scale score on the evening of this study is 8. BMI is 45.62. Following the technical and digital specifications of the [place] [employer] (AASM) a standard diagnostic polysomnogram was performed monitoring EEG, EOG, EMG (chin and leg deviations), oxygen saturation, body position, digital video, respiratory effort and airflow. The sleep Stage and event scoring was based on the AASM Manual for the Scoring of Sleep and Associated Events 2007 edition. Apneas are defined as a drop in the peak thermal sensor excursion by >90% of baseline for at least 10 seconds. Hypopneas were scored using the 4% oxygen desaturation rule (4A-Medicare) and a decrease in the nasal pressure excursions by >30% of baseline for at least 10 seconds. Respiratory effort-related arousal (RERA's) is defined as a sequence of breaths lasting at least 10 seconds characterized by increasing respiratory effort or flattening of the nasal pressure waveform leading to an arousal from sleep when the sequence of breaths does not meet criteria for an apnea or hypopnea. Apnea Hypopnea index (AHI) is defined as the number of apneas and hypopneas occurring in an hour of sleep. Respiratory disturbance index (RDI) is defined as the number of apneas, hypopneas, and RERA's occurring in an hour of sleep. Ms. Camejos total sleep period time was 439.5 minutes. Total sleep time was 431 minutes. Sleep efficiency was 94%. Latency to sleep onset was 16.5 minutes with wake after sleep onset of 10 minutes. Total non-REM sleep time was 335.5 minutes. She spent 6% of that time in N1 sleep, 54% in N2 sleep and 8% in N3 sleep. REM latency was 66.5 minutes. Total REM sleep time was 95.5 minutes or 22% of total sleep time. There were 61 cortical arousals from sleep. Six of these arousals were due to snoring, 15 due to periodic limb movements of sleep, 18 due to respiratory events and 23 were spontaneous. There were 79 periodic limb movements noted on this test. Limb movement index was 11. Limb movement with arousal index was 2.1. There were no central obstructive or mixed apneas on this test. There were 36 hypopneas and 6 RERAs. Apnea-hypopnea index was marginally elevated at 5. Supine AHI was 73, REM AHI was 6.3. Nonsupine AHI was 2. 2092 snoring events were recorded. Total sleep time with snoring was 11.6%. Mean saturation was 94% with desaturations to 85%. Saturations were less than 89% for 0.4 minutes of recorded time. There was no cardiac ectopy noted on this study. Ms. Sol's heart rate ranged from a low of 62 beats per minute to a high of 105 beats per minute during sleep. IMPRESSION AND PLAN: A 41-year-old female with evidence of mild sleep apnea without nocturnal hypoxemia on this study. There does appear to be a positional component to her disease. She does not have sleep apnea when she sleeps non-supine but elevated AHI when she does. 1. This patient may benefit from positive airway pressure therapy. She will be started on a CPAP auto general internal medicine physician with pressures of 5-15 cm at home and a download from her machine reviewed in 1 month, both to check compliance as well as AHI and further pressure adjustments can occur at that time. This will eliminate snoring and apnea in any position. 2. Alternatively, this patient could try to avoid supine sleep as a means of treating her apnea as it appears to be very positional. An overnight home sleep test could be done with positional therapy to ensure her AHI remains well.
== END | disposition home or self-care (01) ==
LOC: C.NEUR 21:00
PROVIDERS: ATTEND Family Medicine
DX: G47.10 Hypersomnia, unspecified (principal); R06.83 Snoring